=== PATIENT | male | born 1940 | race Caucasian/White ===

== ENCOUNTER 2019-07-30 10:49 | Inpatient (IN) | payer OTHER ==
[~2019-07-30] VITALS: Ht 172.7 cm; Wt 100.7 kg
[~2019-07-30 10:49] MED LIST: CYCL10 PO; FORMOTEROL INH; FURO20; HYDACE10B PO; LEVALBUTEROL HCL; LORA10; MOMETASONE; OMEP20ER PO; PENT400ER; POTA8; TERA5 PO; THEO300ERA PO; TIOT18 INH
[2019-07-30 11:28] LABS: BASOPHILS ABSOLUTE AUTO 0.03 K/mm3 (0.00-0.23); BASOPHILS PERCENT AUTO 0 % (0-2); EOSINOPHILS ABSOLUTE AUTO 0.04 K/mm3 (0.00-0.68); EOSINOPHILS PERCENT AUTO 0 % (0-6); Hematocrit 49.7 % (37.0-53.0); Hemoglobin 16.2 g/dL (13.5-17.5); IMMATURE GRAN ABSOLUTE AUTO 0.05 K/mm3 (0.00-0.10); IMMATURE GRAN PERCENT AUTO 1 % (0-1); LYMPHOCYTES ABSOLUTE AUTO 0.54 K/mm3 (0.84-5.20); LYMPHOCYTES PERCENT AUTO 5 % (21-46); MONOCYTES ABSOLUTE AUTO 0.91 K/mm3 (0.16-1.47); MONOCYTES PERCENT AUTO 9 % (4-13); Mean Corpuscular HGB Conc 32.6 g/dL (31.5-36.5); Mean Corpuscular Volume 98 fL (80-100); NEUTROPHILS ABSOLUTE AUTO 8.62 K/mm3 (1.96-9.15); NEUTROPHILS PERCENT AUTO 85 % (41-73); RDW Coefficient Variation 13.3 % (11.7-14.2); RDW Standard Deviation 48.5 fL (35.1-46.3); Red Blood Cell Count 5.07 M/mm3 (4.30-5.90); White Blood Cell Count 10.19 K/mm3 (4.00-11.30)
[2019-07-30 11:51] LABS: Alanine Aminotransfer (ALT/SGP 14 U/L (12-78); Albumin, Blood 3.6 g/dL (3.4-5.0); Alk Phos 55 U/L (50-136); Anion Gap 6 mmol/L (6-16); Aspartate Aminotrans (AST/SGOT 13 U/L (12-37); Bilirubin, Total 1.1 mg/dL (0.1-1.0); Blood Urea Nitrogen 18 mg/dL (8-24); Bun/Creatinine Ratio 15.7 (12.0-20.0); CO2, Blood 29 mmol/L (21-32); Calcium, Blood 9.4 mg/dL (8.5-10.1); Chloride, Blood 103 mmol/L (98-108); Creatinine, Blood 1.15 mg/dL (0.60-1.20); Globulin, Blood 3.6 g/dL (2.2-4.0); Glomerular Filtration Rate >60 (60-); Glucose, Blood 101 mg/dL (70-99); Potassium, Blood 3.8 mmol/L (3.5-5.5); Sodium, Blood 138 mmol/L (136-145); Total Protein, Blood 7.2 g/dL (6.4-8.2); Troponin I 0.015 ng/mL (0.000-0.040)
[2019-07-30 11:56] LABS: Mean Platelet Volume 10.3 fL (9.1-12.4); Platelet Count 164 K/mm3 (150-400)
[2019-07-30] MEDS ORDERED: AMLO5 PO (12:10)
[2019-07-30] MEDS ORDERED: VANICREAM453 GM TOP (12:13)
[2019-07-30] MEDS ORDERED: PROLIA60 MG/1 ML SC (12:14)
[2019-07-30] MEDS ORDERED: Flonase 0.05% N16 GM (12:15)
[2019-07-30] MEDS ORDERED: ALBU90OI INH (12:15)
[2019-07-30] MEDS ORDERED: MULTI-VITAMIN1 EAC2 PO (12:15)
[2019-07-30 13:39] LABS: Theophylline 23.5 ug/mL (10.0-20.0)
[2019-07-30] MEDS ORDERED: THEO300ERA PO (20:55)
--- NOTE | 2019-07-31 04:34 | NUR ---
SHIFT SUMMARY- PT. NEW ADMIT FROM ED. A&O, PLEASANT AND COOPERATIVE WITH CARE. PT. ARRIVED ON VIA NC. CURRENTLY ON RA, TOLERATING WELL. PT. HR WAS IN THE LOW 100'S. SCHEDULED MED GIVEN PER EMAR. PT. IS INDEPENDENT WITH URINAL. DENIES ANY PAIN OR DISCOMFORT. RESTING COMFORTABLY IN BED, NO APPARENT DISTRESS NOTED. CALL LIGHT WITHIN REACH AND SIDE RAILS UP X2. WILL CONT TO MONITOR.
[2019-07-31 05:38] LABS: BASOPHILS ABSOLUTE AUTO 0.01 K/mm3 (0.00-0.23); BASOPHILS PERCENT AUTO 0 % (0-2); EOSINOPHILS PERCENT AUTO 0 % (0-6); Hematocrit 48.6 % (37.0-53.0); IMMATURE GRAN ABSOLUTE AUTO 0.03 K/mm3 (0.00-0.10); IMMATURE GRAN PERCENT AUTO 0 % (0-1); LYMPHOCYTES PERCENT AUTO 3 % (21-46); MONOCYTES ABSOLUTE AUTO 0.35 K/mm3 (0.16-1.47); MONOCYTES PERCENT AUTO 4 % (4-13); Mean Corpuscular HGB Conc 32.9 g/dL (31.5-36.5); Mean Corpuscular Volume 97 fL (80-100); Mean Platelet Volume 10.4 fL (9.1-12.4); NEUTROPHILS ABSOLUTE AUTO 8.55 K/mm3 (1.96-9.15); NEUTROPHILS PERCENT AUTO 93 % (41-73); Platelet Count 196 K/mm3 (150-400); RDW Coefficient Variation 13.3 % (11.7-14.2); RDW Standard Deviation 47.4 fL (35.1-46.3); White Blood Cell Count 9.24 K/mm3 (4.00-11.30)
[2019-07-31 06:02] LABS: Alanine Aminotransfer (ALT/SGP 13 U/L (12-78); Albumin, Blood 3.3 g/dL (3.4-5.0); Albumin/Globulin Ratio 0.8 (0.8-1.8); Alk Phos 55 U/L (50-136); Anion Gap 10 mmol/L (6-16); Aspartate Aminotrans (AST/SGOT 16 U/L (12-37); Bilirubin, Total 0.6 mg/dL (0.1-1.0); Blood Urea Nitrogen 30 mg/dL (8-24); Bun/Creatinine Ratio 23.4 (12.0-20.0); CHOL/HDL RATIO 1.8; CO2, Blood 25 mmol/L (21-32); Calcium, Blood 9.4 mg/dL (8.5-10.1); Chloride, Blood 105 mmol/L (98-108); Cholesterol 184 mg/dL (50-200); Creatinine, Blood 1.28 mg/dL (0.60-1.20); Globulin, Blood 3.9 g/dL (2.2-4.0); Glomerular Filtration Rate 58 (60-); Glucose, Blood 126 mg/dL (70-99); HDL Cholesterol 104 mg/dL (>39); LDL/HDL RATIO 0.7; Low Density Lipoprotein Chol 70 mg/dL (0-110); Potassium, Blood 4.4 mmol/L (3.5-5.5); Sodium, Blood 140 mmol/L (136-145); Total Protein, Blood 7.2 g/dL (6.4-8.2); Triglycerides 48 mg/dL (30-160); Very Low Density Lipoprot Chol 9 mg/dL (6-32)
--- NOTE | 2019-07-31 19:00 | NUR ---
PT. SITTING ON EDGE OF BED. DENIED PAIN THIS SHIFT BUT NOTEABLY SOB WITH EXERTION. HAS A GOOD APPETITE. HOME O2 EVAL COMPLETED BY Ramon
--- NOTE | 2019-07-31 23:48 | NUR ---
RECEIVED CALL FROM TELE, PT. WITH 9 BEAT RUN OF VTACH. PT. SLEEPING, ASYMPTOMATIC. MILITARY PROFESSIONAL STATES PT. BACK AT SR W/PVCS HR IN THE 100'S WHICH HAS BEEN PT'S BASELINE. VSS. NOTIFIED DR. STONER. NO NEW ORDERS. WILL CONT TO MONITOR.
--- NOTE | 2019-08-01 04:36 | NUR ---
SHIFT SUMMARY- PT. SLEPT WELL DURING THE NIGHT. NO APPARENT DISTRESS NOTED. PT. HAD 9 BEAT RUN OF VTACH LAST NIGHT, ASYMPTOMATIC. NO NEW ORDERS RECEIVED FROM PHYSICIAN. PT. A&O, INDEP IN ROOM. NOTED SOME SOB W/ACTIVITY, VSS AND ON RA. DENIED ANY PAIN OR DISCOMFORT T/O THE SHIFT. PLAN FOR F/U W/CARDIOLOGY OUTPT. CALL LIGHT WITHIN REACH AND SIDE RAILS UPX2. WILL CONT TO MONITOR.
[2019-08-01 05:55] LABS: Calcium, Blood 9.9 mg/dL (8.5-10.1); Creatinine, Blood 1.4 mg/dL (0.60-1.20); Potassium, Blood 4.3 mmol/L (3.5-5.5)
[2019-08-01] MEDS ORDERED: FAMO20 PO (12:57)
[2019-08-01] MEDS ORDERED: ACET325 PO (13:00)
[2019-08-01] MEDS ORDERED: AZIT500 PO (13:01)
[2019-08-01] MEDS ORDERED: ATOR40TA PO (13:01)
[2019-08-01] MEDS ORDERED: BENZ100A PO (13:01)
[2019-08-01] MEDS ORDERED: CLOP75 PO (13:01)
[2019-08-01] MEDS ORDERED: GUAI600T33 PO (13:02)
[2019-08-01] MEDS ORDERED: FOLI1 PO (13:02)
[2019-08-01] MEDS ORDERED: LOSA25 PO (13:02)
[2019-08-01] MEDS ORDERED: Prednisone10 MG PO (13:04)
[2019-08-01] MEDS ORDERED: METO25ER PO (13:04)
[2019-08-01] MEDS ORDERED: TORSE20 PO (13:05)
[2019-08-01] MEDS ORDERED: SPIR25 PO (13:05)
[2019-08-01] MEDS ORDERED: B-1100 M1 PO (13:05)
--- NOTE | 2019-08-01 14:30 | NUR ---
PT. DISCHARGED HOME, SPOUSE PICKED HIM UP. [facility].
== END 2019-08-01 14:19 | disposition home or self-care (01) | DRG 189 ==
LOC: ER 10:49 → ERHOLD 13:58 → MEDS 13:58 → ERHOLD 18:00 → MEDS 20:39
PROVIDERS: Emergency Medicine; Internal Medicine; Nurse Practitioner Acute Care; ADMIT Hospitalist
DX: J96.01 Acute respiratory failure with hypoxia (principal); J44.1 Chronic obstructive pulmonary disease with (acute) exacerbation; I42.9 Cardiomyopathy, unspecified; I47.2 Ventricular tachycardia; K21.9 Gastro-esophageal reflux disease without esophagitis; I73.9 Peripheral vascular disease, unspecified; I11.0 Hypertensive heart disease with heart failure; N28.9 Disorder of kidney and ureter, unspecified; Z87.891 Personal history of nicotine dependence
CPT/HCPCS: 36415; 71045; 80048; 80053; 80061; 80198; 83735; 83880; 84145; 84443; 84484; 85025; 93005; 93010; 93306; 94640; 94644; 94667; 94760; 94761; 96361; 96365; 96367; 96372-59; 96375; 99285-25; A9270-GY; J0456; J0696; J1650; J1940; J2920; J2930; J7030; J7050

== ENCOUNTER 2020-02-08 18:56 | Emergency (ER) | payer OTHER, MEDICARE ==
[~2020-02-08] VITALS: Ht 172.7 cm; Wt 88.9 kg
[~2020-02-08 18:56] MED LIST changes: +ACET325 PO; +ALBU90OI INH; +AMLO5 PO; +ATOR40TA PO; +AZIT500 PO; +B-1100 M1 PO; +BENZ100A PO; +CLOP75 PO; +FAMO20 PO; +FOLI1 PO; +Flonase 0.05% N16 GM; +GUAI600T33 PO; +LOSA25 PO; +METO25ER PO; +MULTI-VITAMIN1 EAC2 PO; +PROLIA60 MG/1 ML SC; +Prednisone10 MG PO; +SPIR25 PO; +TORSE20 PO; +VANICREAM453 GM TOP
[2020-02-08 19:51] LABS: BASOPHILS ABSOLUTE AUTO 0.04 K/mm3 (0.00-0.23); BASOPHILS PERCENT AUTO 1 % (0-2); EOSINOPHILS ABSOLUTE AUTO 0.11 K/mm3 (0.00-0.68); EOSINOPHILS PERCENT AUTO 1 % (0-6); Hemoglobin 14.2 g/dL (13.5-17.5); IMMATURE GRAN ABSOLUTE AUTO 0.04 K/mm3 (0.00-0.10); IMMATURE GRAN PERCENT AUTO 1 % (0-1); LYMPHOCYTES ABSOLUTE AUTO 1.04 K/mm3 (0.84-5.20); LYMPHOCYTES PERCENT AUTO 13 % (21-46); MONOCYTES ABSOLUTE AUTO 0.74 K/mm3 (0.16-1.47); MONOCYTES PERCENT AUTO 9 % (4-13); Mean Corpuscular HGB 32.3 pg (26.0-34.0); Mean Corpuscular Volume 98 fL (80-100); Mean Platelet Volume 10.2 fL (9.1-12.4); NEUTROPHILS ABSOLUTE AUTO 6.11 K/mm3 (1.96-9.15); NEUTROPHILS PERCENT AUTO 76 % (41-73); Platelet Count 185 K/mm3 (150-400); RDW Coefficient Variation 12.6 % (11.7-14.2); RDW Standard Deviation 45.5 fL (35.1-46.3); Red Blood Cell Count 4.39 M/mm3 (4.30-5.90); White Blood Cell Count 8.08 K/mm3 (4.00-11.30)
[2020-02-08] MEDS ORDERED: GUAI600T33 PO (20:03)
[2020-02-08 20:08] LABS: Alanine Aminotransfer (ALT/SGP 24 U/L (12-78); Albumin, Blood 3.6 g/dL (3.4-5.0); Albumin/Globulin Ratio 1.2 (0.8-1.8); Alk Phos 53 U/L (50-136); Anion Gap 7 mmol/L (6-16); Aspartate Aminotrans (AST/SGOT 14 U/L (12-37); Bilirubin, Total 0.8 mg/dL (0.1-1.0); Blood Urea Nitrogen 22 mg/dL (8-24); Bun/Creatinine Ratio 15.2 (12.0-20.0); CO2, Blood 30 mmol/L (21-32); Calcium, Blood 9.3 mg/dL (8.5-10.1); Chloride, Blood 102 mmol/L (98-108); Creatinine, Blood 1.45 mg/dL (0.60-1.20); Globulin, Blood 3.1 g/dL (2.2-4.0); Glomerular Filtration Rate 50 (60-); Glucose, Blood 97 mg/dL (70-99); Potassium, Blood 3.6 mmol/L (3.5-5.5); Sodium, Blood 139 mmol/L (136-145); Total Protein, Blood 6.7 g/dL (6.4-8.2); Troponin I <0.015 ng/mL (0.000-0.040)
[2020-02-08] MEDS ORDERED: PRED20 PO (22:12)
[2020-02-09] MEDS ORDERED: Prednisone20 MG PO (15:13)
== END 2020-02-08 22:25 | disposition home or self-care (01) ==
LOC: ER 18:56
PROVIDERS: Emergency Medicine
DX: J44.9 Chronic obstructive pulmonary disease, unspecified (principal); I48.91 Unspecified atrial fibrillation; Z91.013 Allergy to seafood; Z88.8 Allergy status to other drugs, medicaments and biological substances; Z79.82 Long term (current) use of aspirin; Z79.02 Long term (current) use of antithrombotics/antiplatelets; Z79.899 Other long term (current) drug therapy
CPT/HCPCS: 71045; 80053; 83880; 84484; 85025; 93005; 93010; 94640; 99285-25; J7512

== ENCOUNTER 2020-09-09 06:54 | Day surgery (SDC) | payer OTHER ==
[~2020-09-09] VITALS: Ht 175.3 cm; Wt 88.6 kg
[~2020-09-09 06:54] MED LIST changes: +PRED20 PO; +Prednisone20 MG PO
--- NOTE | 2020-09-09 10:04 | NUR ---
PT PROVIDED WITH MEAL TRAY, TOLERATES PO FLUIDS/FOOD WITH NO DIFFICULTIES. RIGHT WRIST TR BAND ON WITH ARM BOARD SUPPORT. SITE SOFT NON TENDER WITH NO BLEEDING OR OOZING NOTED. PT DENIES CP OR SOB. CALL LIGHT IN REACH. WILL MONITOR.
--- NOTE | 2020-09-09 11:16 | NUR ---
10cc air removed from R wrist TR Band. -bleeding or swelling.
--- NOTE | 2020-09-09 11:46 | NUR ---
PT OUT OF CHAIR, RIGHT WRIST REMAINS STABLE WITH DEFLATED TR BAND/ARM BOARD ON. AMBULATES WITH SLOW STEADY GAIT TO RESTROOM, UNMEASURED VOID. GETS DRESSED WITH NO NEEDED ASSISTANCE, CALL FOR TRANSPORATION HOME.
--- NOTE | 2020-09-09 11:52 | NUR ---
R WRIST TR BAND REMOVED.-BLEEDING OR SWELLING. PUNCTURE AREA CLEANED /C NS AND CLOTH DOT DRSG PLACED. R WRIST SPLINT REAPPLIED AND R ARM SLING PLACED. IV X2 REMOVED FROM L ARM. PT VERBALIZED UNDERSTANDING OR WRITTEN AND VERBAL D/C INST. PT TAKEN OUT OF HRT CENTER VIA W/C.
== END 2020-09-09 12:30 | disposition home or self-care (01) ==
LOC: MHTC 06:54
DX: I25.10 Atherosclerotic heart disease of native coronary artery without angina pectoris (principal); I42.8 Other cardiomyopathies; J44.9 Chronic obstructive pulmonary disease, unspecified; I45.2 Bifascicular block; I73.9 Peripheral vascular disease, unspecified; I11.0 Hypertensive heart disease with heart failure; I50.9 Heart failure, unspecified; E78.00 Pure hypercholesterolemia, unspecified; Z87.891 Personal history of nicotine dependence; Z88.8 Allergy status to other drugs, medicaments and biological substances; Z91.013 Allergy to seafood; Z79.02 Long term (current) use of antithrombotics/antiplatelets
CPT/HCPCS: 76937; 93460; C1769; C1894; J1644; J2250; J3010; J7030; J7050; Q9967

== ENCOUNTER 2020-11-18 16:03 | Inpatient (IN) | payer OTHER ==
[~2020-11-18] VITALS: Ht 172.7 cm; Wt 88.0 kg
[2020-11-18 16:55] LABS: BASOPHILS ABSOLUTE AUTO 0.02 K/mm3 (0.00-0.23); BASOPHILS PERCENT AUTO 0 % (0-2); EOSINOPHILS ABSOLUTE AUTO 0.01 K/mm3 (0.00-0.68); EOSINOPHILS PERCENT AUTO 0 % (0-6); Hematocrit 45.1 % (37.0-53.0); Hemoglobin 15.2 g/dL (13.5-17.5); IMMATURE GRAN ABSOLUTE AUTO 0.12 K/mm3 (0.00-0.10); IMMATURE GRAN PERCENT AUTO 1 % (0-1); LYMPHOCYTES ABSOLUTE AUTO 0.21 K/mm3 (0.84-5.20); LYMPHOCYTES PERCENT AUTO 2 % (21-46); MONOCYTES ABSOLUTE AUTO 0.53 K/mm3 (0.16-1.47); MONOCYTES PERCENT AUTO 5 % (4-13); Mean Corpuscular HGB 31.1 pg (26.0-34.0); Mean Corpuscular HGB Conc 33.7 g/dL (31.5-36.5); Mean Corpuscular Volume 92 fL (80-100); Mean Platelet Volume 9.9 fL (9.1-12.4); NEUTROPHILS ABSOLUTE AUTO 10.78 K/mm3 (1.96-9.15); NEUTROPHILS PERCENT AUTO 92 % (41-73); Platelet Count 233 K/mm3 (150-400); RDW Coefficient Variation 14.1 % (11.7-14.2); RDW Standard Deviation 48.4 fL (35.1-46.3); Red Blood Cell Count 4.88 M/mm3 (4.30-5.90); White Blood Cell Count 11.67 K/mm3 (4.00-11.30)
[2020-11-18 17:12] LABS: Albumin, Blood 3.6 g/dL (3.4-5.0); Albumin/Globulin Ratio 1.1 (0.8-1.8); Bilirubin, Total 0.7 mg/dL (0.1-1.0); Bun/Creatinine Ratio 25.8 (12.0-20.0); Calcium, Blood 9.1 mg/dL (8.5-10.1); Creatinine, Blood 1.63 mg/dL (0.60-1.20); Globulin, Blood 3.2 g/dL (2.2-4.0); Potassium, Blood 3.5 mmol/L (3.5-5.5); Total Protein, Blood 6.8 g/dL (6.4-8.2); Troponin I 0.036 ng/mL (0.000-0.040)
[2020-11-18 17:15] LABS: Thyroid Stimulating Hormone 0.602 uIU/mL (0.360-4.800)
[2020-11-18 17:26] LABS: BASOPHILS PERCENT MAN 0 % (0-2); EOSINOPHILS PERCENT MAN 0 % (0-6); LYMPHOCYTES ABSOLUTE MAN 0.23 K/mm3 (0.84-5.20); LYMPHOCYTES PERCENT MAN 2 % (21-46); MONOCYTES PERCENT MAN 6 % (4-13); NEUTROPHILS ABSOLUTE MAN 10.73 K/mm3 (1.96-9.15); SEG NEUTROPHILS PERCENT MAN 92 % (41-73); TOTAL CELLS COUNTED 100
[2020-11-18 19:16] LABS: Theophylline 21.4 ug/mL (10.0-20.0)
[2020-11-18 21:21] LABS: Adenovirus Not Detected (NOT DETECT); Bordetella pertussis Not Detected (NOT DETECT); Chlamydophila pneumoniae Not Detected (NOT DETECT); Coronavirus 229E Not Detected (NOT DETECT); Coronavirus HKU1 Not Detected (NOT DETECT); Coronavirus NL63 Not Detected (NOT DETECT); Coronavirus OC43 Not Detected (NOT DETECT); Human Metapneumovirus Not Detected (NOT DETECT); Human Rhinovirus/Enterovirus Not Detected (NOT DETECT); Influenza A/2009-H1 Not Detected (NOT DETECT); Influenza A/H1 Not Detected (NOT DETECT); Influenza A/H3 Not Detected (NOT DETECT); Influenza B Not Detected (NOT DETECT); Mycoplasma pneumoniae Not Detected (NOT DETECT); Parainfluenza Virus 1 Not Detected (NOT DETECT); Parainfluenza Virus 2 Not Detected (NOT DETECT); Parainfluenza Virus 3 Not Detected (NOT DETECT); Parainfluenza Virus 4 Not Detected (NOT DETECT); Respiratory Syncytial Virus Not Detected (NOT DETECT); SARS-Cov-2 (COVID-19), BioFire Not Detected (NOT DETECT)
[2020-11-18 22:00] LABS: Source, Urine Voided
[2020-11-18 22:02] LABS: Bilirubin, Urine Neg (Neg); Blood, Urine Neg (Neg); Glucose Qualitative, Urine Neg (Neg); Ketones, Urine Neg (Neg); Leukocyte Esterase, Urine Neg (Neg); Nitrite, Urine Neg (Neg); Protein, Urine Neg (Neg); Specific Gravity, Urine 1.015 (1.003-1.022); Urobilinogen, Urine NORM (Normal)
[2020-11-18 22:03] LABS: Appearance, Urine Clear (Clear); Color, Urine Yellow (P-Yellow)
--- NOTE | 2020-11-19 01:58 | NUR ---
2000 CARE ASSUMPTIOM PT ARRIVED VIA ER BED AND TRANSFERED SELF TO PCU BED. PT HAD CARDIZEM GTT RUNNING AT 10MG/HR W HR OF 100-135 PER PIN ATTACHER. O2 SATS >92% ON 2L VIA NC. PT DENYING PAIN OR NAUSEA UPON ARRIVAL. BP WNL AND STABLE.
--- NOTE | 2020-11-19 03:13 | NUR ---
TROPONIN PT'S 2199 TROPONIN CAMAE BACK AT 0.044, THIS IS UP FROM 0.036. THERE WERE NO REPEAT TROPONIN LABS ORDERED SO PROVIDER KENDRICK WAS CONTACTED TO SEE IF HE WANTED TO AN ORDER ROF A THIRD TROPONIN AND HE SAID "NO IT WASN'T NEEDED. RN OSTOMYRACH Perry NOTIFIED OF PROVIDERS RESPONSE. PT DENYING ANY CP OR PRESSURE.
[2020-11-19 04:11] LABS: Hematocrit 41.7 % (37.0-53.0); Hemoglobin 13.9 g/dL (13.5-17.5); Mean Corpuscular HGB Conc 33.3 g/dL (31.5-36.5); Mean Corpuscular Volume 93 fL (80-100); Mean Platelet Volume 9.7 fL (9.1-12.4); Platelet Count 214 K/mm3 (150-400); RDW Coefficient Variation 14.1 % (11.7-14.2); RDW Standard Deviation 48.3 fL (35.1-46.3); Red Blood Cell Count 4.48 M/mm3 (4.30-5.90); White Blood Cell Count 11.27 K/mm3 (4.00-11.30)
[2020-11-19 04:32] LABS: Bun/Creatinine Ratio 26.9 (12.0-20.0); Calcium, Blood 8.6 mg/dL (8.5-10.1); Creatinine, Blood 1.3 mg/dL (0.60-1.20); Magnesium, Blood 2.5 mg/dL (1.6-2.4); Potassium, Blood 3.2 mmol/L (3.5-5.5)
--- NOTE | 2020-11-19 04:32 | NUR ---
MECHANICAL MAINTENANCE TECHNICIAN SUMMARY PT'S HR HAS REMAINED 80-130 BPM THIS SHIFT W CARDIZEM GTT RUNNING AT 10MG/HR. BP'S WNL AND STABLE THIS SHIFT. PT HAS REMAINED AFEBRILE W PEAK TEMP AT 97.6. O2 SATS WERE HIGH 90'S WHEN PT ARRIVED TO UNIT ON 2L NC SO RT TOOK PT OFF O2 AND HE HAS REMAINED >92% ON RM AIR. PT WAS TACHYPNEIC WHEN HE ARRIVED WHICH HAS RESOLVED HOWEVER THE PT BECOMES SOB W AMBULATION. PT IS NOT STEADY ON HIS FEET WHEN HE TRANSFERS. PT WAS UNABLE TO VOID DESPITE MULTIPLE ATTEMPTS SO A ONE TIME ORDER WAS OBTAINED TO STRAIGHT CATH AND THEN PRN BLADDER SCAN. PT HAS DEMIED ANY CP OR PRESSURE THIS SHIFT. TROPONIN DRAWN AT 2200 SHOWED SLIGHT INCREASE, SEE PREVIOUS NOTE. PT SLEPT COMFORTABLY FOR MOST OF SHIFT. WILL REPORT TO ONCOMING RN.
--- NOTE | 2020-11-19 13:31 | NUR ---
Echocardiogram completed.
--- NOTE | 2020-11-19 14:53 | NUR ---
UPDATE; CARDIZEM DECREASED TO 5ML/HR FOR HR SUSTAINING IN 80'S.
[2020-11-20 03:58] LABS: Hematocrit 43.4 % (37.0-53.0); Hemoglobin 14.1 g/dL (13.5-17.5); Mean Corpuscular HGB Conc 32.5 g/dL (31.5-36.5); Mean Corpuscular Volume 95 fL (80-100); Mean Platelet Volume 10.2 fL (9.1-12.4); Platelet Count 194 K/mm3 (150-400); RDW Coefficient Variation 14.3 % (11.7-14.2); RDW Standard Deviation 49.8 fL (35.1-46.3); Red Blood Cell Count 4.55 M/mm3 (4.30-5.90)
[2020-11-20 04:19] LABS: Calcium, Blood 8.7 mg/dL (8.5-10.1); Creatinine, Blood 1.27 mg/dL (0.60-1.20); Potassium, Blood 4.1 mmol/L (3.5-5.5)
--- NOTE | 2020-11-20 04:26 | NUR ---
SAMPLE DISPLAY PREPARER SUMMARY PT IS AXO X4 AND IS ABLE TO MAKE NEEDS KNOWN. PT'S HAD A HR OF NSR W FREQUENT PAC'S IN THE 80'S AT THE START OF THE SHIFT SO THE [facility] GTT WAS STOPPED AT 1900 SINCE THE PT RECIEVED HIS PO LOPRESSOR EARLIER IN THE DAY, THIS WAS OKAY'S W CHARGE NURSE SELENA Alexander. PT'S HR 80-90'S MOST OF THE SHIFT HOWEVER THIS AM IS MORE 90-100. PT HAS DENIED ANY CP OR PRESSURE THIS SHIFT. PT O2 SATS REMAIN >92% ON RM AIR BUT DOES DROP DOWN WHEN HE IS AMBULATING. PT IS WEAK ON HIS FEET THIS SHIFT W INCREASE IN BACK PAIN PER PT WHICH HE ATTRIBUTES TO LYING IN THE HOSPITAL BED, PT IN RECLINER FOR MOST OF THE SHIFT W HEAT PACK W RELIEF PER PT. BP STABLE 120/70'S THIS SHIFT. PT HAD BLADDER SCAN >400 HOWEVER THE PT REQUESTED A VELEZ OVER REPEATED STRAIGHT CATH SO ORDER OBTAINED AND VELEZ PLACED AND DRAINING. SKIN TEARS ON BUE CLEANED AND REDRESSED THIS SHIFT. WILL REPORT TO ONCOMING RN.
--- NOTE | 2020-11-20 17:11 | NUR ---
SHIFT SUMMARY; A/A/OX4 THROUGHOUT SHIFT. UP IN RECLINER ALL DAY. REPORTS FEELING DECREASED BACK PAIN BY SITTING IN RECLINER. WORKED WITH PT IN AFTERNOON. PLAN FOR DC TOMORROW WITH HOME HEALTH. VSS, HR SINUS TACH 90-100. NO ACUTE MEDICAL CHANGES DURING SHIFT. WILL CONTINUE TO MONITOR UNTIL 1800, CARE WILL BE REPORTED OFF TO RACH GRIMM.
--- NOTE | 2020-11-20 19:03 | NUR ---
REPORT GIVEN TO RACH CASTAÑEDA.
--- NOTE | 2020-11-21 02:39 | NUR ---
PATIENT IS SITTING UP IN CHAIR AT 1845, PATIENT STATES NEEDS TO STAY IN THE CHAIR DUE TO THE BED IS TOO PAINFUL ON HIS BACK, CALLS APPROPRIATELY, VELEZ CATETHER IS IN PLACE, LOWER THAN BLADDER, NOT ON FLOOR AND STAT LOCK IN PLACE. DENTURE CARE WAS PROVIDED THIS EVENING.
--- NOTE | 2020-11-21 07:49 | NUR ---
Bedside report received from Jailene. Bladder training initiated at this time in anticipation of discharge.
--- NOTE | 2020-11-21 09:55 | NUR ---
ROSIE BAIRD'Ivanna AFTER 2 HOURS CLAMPED, pt states that he feels some fullness in the bladder. lopez unclamped, drained, and pt was assisted to the bathroom using the walker and gait belt as he states he feels like he needs to have a BM. States he often has constipation and uses exlax at home. No documented BM since 11/15 during hospital stay.
--- NOTE | 2020-11-21 11:37 | NUR ---
Pt was assisted to bathroom by EXAMINER OF CURRENCY. He voided.
[2020-11-21] MEDS ORDERED: DOXY100 PO (11:38)
[2020-11-21] MEDS ORDERED: XARELTO20 MG PO (11:39)
[2020-11-21] MEDS ORDERED: TRAM50 PO (11:41)
--- NOTE | 2020-11-21 13:08 | NUR ---
Called Sada CORDERO to request albuterol breathing tx. Pt c/o being short of breath after activity of dressing in preparation for discharge home.
== END 2020-11-21 13:49 | disposition home health service (06) | DRG 189 ==
LOC: ER 16:03 → PCU 18:25
PROVIDERS: Emergency Medicine; ADMIT Internal Medicine
DX: J96.01 Acute respiratory failure with hypoxia (principal); I42.9 Cardiomyopathy, unspecified; R33.9 Retention of urine, unspecified; I48.91 Unspecified atrial fibrillation; G89.29 Other chronic pain; N18.30 Chronic kidney disease, stage 3 unspecified; J44.9 Chronic obstructive pulmonary disease, unspecified; I73.9 Peripheral vascular disease, unspecified; Z91.013 Allergy to seafood; Z88.6 Allergy status to analgesic agent; Z88.8 Allergy status to other drugs, medicaments and biological substances; K21.9 Gastro-esophageal reflux disease without esophagitis; I10 Essential (primary) hypertension; M81.0 Age-related osteoporosis without current pathological fracture; Z87.891 Personal history of nicotine dependence; T48.6X5A Adverse effect of antiasthmatics, initial encounter
CPT/HCPCS: 0202U; 36415; 51701; 51703; 71045; 80048; 80053; 80198; 81003; 83605; 83735; 83880; 84145; 84443; 84484; 85025; 85027; 87040; 93005; 93010; 93306; 94640; 94760; 96365; 96367; 96375; 96376; 97110; 97116; 97162; 97530; 99285-25; A9270; J0696; J2405